=== PATIENT | female | born 1950 | race Caucasian/White ===

== ENCOUNTER 2016-12-04 19:18 | Emergency (ER) | payer BC ==
[~2016-12-04 19:18] MED LIST: ASPI-482 PO; CEPH500C PO; INSU100I17 SQ; INSU100V13 SQ; LISI-334 PO; METF10002 PO; VANC1FRO IV
[2016-12-04 19:38] VITALS: BP 160/82
[2016-12-04] MEDS ORDERED: oxyCODONE/APAP 10/325 1 TAB TABLET PO ONE (20:30)
[2016-12-04 20:56] LABS: BASO % 0 % (0-3); EOS # 0.1 x10^3/uL (0.0-0.7); EOS % 1 % (0-3); HEMATOCRIT 39.3 % (36.0-47.0); HEMOGLOBIN 12.9 g/dL (12.0-15.5); LYMPH # 1.8 x10^3/uL (1.0-4.8); LYMPH % 20 % (24-48); MEAN CORPUSCULAR HEMOGLOBIN 30 pg (25-35); MEAN CORPUSCULAR HGB CONC 33 g/dL (31-37); MEAN CORPUSCULAR VOLUME 92 fL (79-100); MONO # 0.7 x10^3/uL (0.0-1.1); MONO % 8 % (0-9); NEUT # 6.6 x10^3uL (1.8-7.7); NEUT % 71 % (31-73); PLATELET COUNT 275 x10^3/uL (140-400); RED BLOOD COUNT 4.26 x10^6/uL (3.50-5.40); RED CELL DISTRIBUTION WIDTH 13.6 % (11.5-14.5); WHITE BLOOD COUNT 9.3 x10^3/uL (4.0-11.0)
[2016-12-04 21:07] LABS: ALBUMIN 3.7 g/dL (3.4-5.0); CREATININE 1.6 mg/dL (0.6-1.0); GFR 32.5; POTASSIUM 4.7 mmol/L (3.5-5.1); TOTAL BILIRUBIN 0.3 mg/dL (0.2-1.0); TOTAL PROTEIN 7.3 g/dL (6.4-8.2); URIC ACID 4.2 mg/dL (2.6-6.0)
[2016-12-04] MEDS ORDERED: CLINDAMYCIN HCL 150 MG CAPSULE PO ONE (21:30)
--- NOTE | 2016-12-05 04:51 | ED.ADGEN ---
Past History Past Medical History: Cancer, Diabetes, High Cholesterol, Hypertension, Other Past Surgical History: , Tubal ligation, Other Alcohol Use: None Drug Use: None Adult General Chief Complaint Chief Complaint Left foot swelling and pain [facility] Patient is a 66-year-old female who presents with left foot swelling and pain for 3 days with left toenail removal yesterday per Dr. Gutierrez's office. Patient prescribed pain medication, but states swelling and pain are poorly controlled. Patient with Sherman's foot edema with swelling tenderness and warmth over her left ankle. There is no injury patient streaking or weeping. There is no calf pain or swelling noted. No fever or nausea. Patient denies history of trauma. Denies history of gout. Review of Systems Review of Systems ROS as per HPI. Current Medications Current Medications Current Medications Medications (Trade) Dose Ordered Sig/Wendy Start Time Stop Time Status Last Admin Dose Admin Clindamycin HCl (Cleocin) 300 mg 1X ONCE 12/04/16 21:30 12/04/16 21:31 DC 12/04/16 21:30 300 MG Oxycodone/ Acetaminophen (Percocet 10/325) 1 tab 1X ONCE 12/04/16 20:30 12/04/16 20:31 DC 12/04/16 20:30 1 TAB Allergies Allergies Allergies Coded Allergies Type Severity Reaction Last Updated Verified No Known Drug Allergies 09/13/14 No Physical Exam Physical Exam Constitutional: Well developed, well nourished, discomfort secondary pain. Skin: No induration, streaking or weeping. Extremities: Left foot/ankle, mild swelling of left foot with tenderness and warmth and mild erythema over left ankle. Joint does not feel hot patient has only minimal for range of motion. Recently moved left great toe nail fell bleeding of nail bed. Neurologic: Left foot, no motor weakness or loss of sensation. Current Patient Data Vital Signs Vital Signs Date Time Temp Pulse Resp B/P (MAP) Pulse Ox O2 Delivery O2 Flow Rate FiO2 12/04/16 19:38 98.4 85 20 98 Room Air Lab Results Laboratory Tests Test 12/04/16 20:33 White Blood Count 9.3 x10^3/uL (4.0-11.0) Red Blood Count 4.26 x10^6/uL (3.50-5.40) Hemoglobin 12.9 g/dL (12.0-15.5) Hematocrit 39.3 % (36.0-47.0) Mean Corpuscular Volume 92 fL (79-100) Mean Corpuscular Hemoglobin 30 pg (25-35) Mean Corpuscular Hemoglobin Concent 33 g/dL (31-37) Red Cell Distribution Width 13.6 % (11.5-14.5) Platelet Count 275 x10^3/uL (140-400) Neutrophils (%) (Auto) 71 % (31-73) Lymphocytes (%) (Auto) 20 % (24-48) L Monocytes (%) (Auto) 8 % (0-9) Eosinophils (%) (Auto) 1 % (0-3) Basophils (%) (Auto) 0 % (0-3) Neutrophils # (Auto) 6.6 x10^3uL (1.8-7.7) Lymphocytes # (Auto) 1.8 x10^3/uL (1.0-4.8) Monocytes # (Auto) 0.7 x10^3/uL (0.0-1.1) Eosinophils # (Auto) 0.1 x10^3/uL (0.0-0.7) Basophils # (Auto) 0.0 x10^3/uL (0.0-0.2) Sodium Level 141 mmol/L (136-145) Potassium Level 4.7 mmol/L (3.5-5.1) Chloride Level 105 mmol/L (98-107) Carbon Dioxide Level 30 mmol/L (21-32) Anion Gap 6 (6-14) Blood Urea Nitrogen 28 mg/dL (7-20) H Creatinine 1.6 mg/dL (0.6-1.0) H Estimated GFR (Cockcroft-Gault) 32.5 BUN/Creatinine Ratio 18 (6-20) Glucose Level 213 mg/dL (70-99) H Uric Acid 4.2 mg/dL (2.6-6.0) Calcium Level 9.0 mg/dL (8.5-10.1) Total Bilirubin 0.3 mg/dL (0.2-1.0) Aspartate Amino Transferase (AST) 20 U/L (15-37) Alanine Aminotransferase (ALT) 33 U/L (14-59) Alkaline Phosphatase 44 U/L (46-116) L C-Reactive Protein 8.0 mg/L (0-3.3) H Total Protein 7.3 g/dL (6.4-8.2) Albumin 3.7 g/dL (3.4-5.0) Albumin/Globulin Ratio 1.0 (1.0-1.7) EKG EKG [] Radiology/Procedures Radiology/Procedures [Left foot: No obvious displaced fracture per preliminary ED read.] Course & Med Decision Making Course & Med Decision Making Pertinent Labs and Imaging studies reviewed. (See chart for details) [Left foot pain, tenderness and swelling with concern for possible cellulitis. Clindamycin given. Patient instructed to be nonweightbearing, keep leg elevated at rest and follow-up with Dr. Gutierrez in office.] Final Impression Final Impression [1. Left foot cellulitis] Problems: Dragon Disclaimer Dragon Disclaimer This electronic medical record was generated, in whole or in part, using a voice recognition dictation system. JULIO HUFF DO Dec 05, 2016 04:51
--- NOTE | 2016-12-05 09:53 | RAD ---
Left foot, 3 views, 12/04/2016: History: Great toe pain and swelling No fracture or destructive bony lesion is seen. There are mild degenerative changes at the first MTP joint and scattered interphalangeal joints. A moderate size inferior calcaneal spur is present. There is mild subcutaneous edema about the foot. IMPRESSION: No acute bony abnormality is detected.
== END 2016-12-04 22:00 | disposition home or self-care (01) ==
LOC: ER 19:18
DX: L03.116 Cellulitis of left lower limb (principal); I10 Essential (primary) hypertension; E78.00 Pure hypercholesterolemia, unspecified; E11.9 Type 2 diabetes mellitus without complications
CPT/HCPCS: 36415; 73630; 80053; 84550; 85027; 86140; 99284; 99285

== ENCOUNTER 2016-12-05 18:44 | Inpatient (IN) | payer BC ==
[~2016-12-05] VITALS: Ht 170.2 cm; Wt 83.5 kg
[2016-12-05 19:30] VITALS: BP 160/94
--- NOTE | 2016-12-05 19:30 | NUR ---
Pt direct admitted from Dr Gutierrez's office for Left leg Cellulitis and pain. Pt to [address] [place] [address] via wheelchair, taken to room 124 accompanied nursing staff & boyfriend Davian. Pt moved from wheelchair to bed x1 assist, unsteady, slow gait noted. Admission assessment completed. Health history & home medications reviewed with pt. VSS. IV started in Left wrist #22, pt tolerated well. surgical scrub technologist at bedside for admit labs and BC x2 drawn as well. IV Vanco started after BC drawn. Pt assist to bathroom x1 assist and walker. Pt able to put wt on left leg but with increased pain, pt given PRN pain medication. Pt had left great toe "nail removed on Friday or Friday" (12/03 or 12/04) at MD's office and has now developed increased pain and swelling up left leg. Pictures taken per [facility] protocol and placed in paper chart. Toe nail bed crusty and red with scant oozing. Wound care consulted in computer. Lovenox for VTE. Pt refused pneumonia vaccine. Pt lives at home with boyfriend Davian. POC reviewed with pt, understanding verbalized. Box lunch given per request. Call light within reach.
[2016-12-05] MEDS ORDERED: VANCOMYCIN 2 GM in IV NORMAL SALINE 500ML 500 ML IV ONE (20:30)
[2016-12-05] MEDS ORDERED: IV NORMAL SALINE 250ML 250 ML ONE (20:43)
[2016-12-05] MEDS: ENOXAPARIN 40 MG/0.4 ML DISP.SYRIN. SQ SCH (21:00)
[2016-12-05] MEDS: HYDROcodone/APAP 7.5/325MG 1 TAB TABLET PO PRN (21:01)
[2016-12-05 21:44] LABS: BASO % 0 % (0-3); EOS # 0.1 x10^3/uL (0.0-0.7); EOS % 1 % (0-3); HEMATOCRIT 39.1 % (36.0-47.0); HEMOGLOBIN 12.8 g/dL (12.0-15.5); LYMPH # 1.6 x10^3/uL (1.0-4.8); LYMPH % 17 % (24-48); MEAN CORPUSCULAR HEMOGLOBIN 30 pg (25-35); MEAN CORPUSCULAR HGB CONC 33 g/dL (31-37); MEAN CORPUSCULAR VOLUME 92 fL (79-100); MONO # 0.7 x10^3/uL (0.0-1.1); MONO % 8 % (0-9); NEUT # 6.7 x10^3uL (1.8-7.7); NEUT % 73 % (31-73); PLATELET COUNT 269 x10^3/uL (140-400); RED BLOOD COUNT 4.25 x10^6/uL (3.50-5.40); RED CELL DISTRIBUTION WIDTH 13.5 % (11.5-14.5); WHITE BLOOD COUNT 9.1 x10^3/uL (4.0-11.0)
[2016-12-05] MEDS: INSULIN DETEMIR 300 UNITS/3 ML INSULN.PEN. SQ SCH (21:44)
[2016-12-05 21:45] LABS: CALCIUM 9.2 mg/dL (8.5-10.1); CREATININE 1.3 mg/dL (0.6-1.0); GFR 41.2; POTASSIUM 4.7 mmol/L (3.5-5.1)
[2016-12-05] MEDS: VANCOMYCIN PER PHARMACY MC PRN (21:51)
--- NOTE | 2016-12-05 21:51 | NUR ---
Pharmacy Vancomycin Dosing Note S:Consulted to monitor and dose vancomycin started 12/05/16. O:MARIA G GUZMAN is a 66 year old F with Cellulitis . Height: 5 feet, 7 inches Weight: 83.326032 kg [place] Body Weight: Adjusted Body Weight: Dosing Weight: Actual Other Antibiotics: LABS: Last BUN: 24 Last Creatinine: 1.3 Creatinine Clearance: 39.5 Last WBC: 9.1 Last Platelets: 269 Tmax (past 24 hours): Microbiology: I/O: Drug Levels: Last level: on at Last dose given 12/05/16 at 2142 Vancomycin Dosing: Loading Dose: 2000 mg x1 Dosing Weight: Actual Target Trough: 10-20 A: Based on: P: 1. Begin Vancomycin 1250 mg IV q24h 2. Follow up Trough level on 12/07/16 at 2130 3. Pharmacy will continue to monitor, follow and adjust therapy as needed. CARLY SAMANIEGO [facility], 12/05/16 [id number]
[2016-12-05 22:45] VITALS: BP 131/81
[2016-12-05 22:54] LABS: SEDIMENTATION RATE 25 (0-25)
[2016-12-06] MEDS ORDERED: INSU100I30 SUBCUT (02:25)
[2016-12-06] MEDS ORDERED: HYDR-2758 PO (02:25)
[2016-12-06] MEDS ORDERED: CHOL500050 PO (02:25)
[2016-12-06] MEDS ORDERED: FENO145T2 PO (02:25)
[2016-12-06 05:55] VITALS: BP 133/75
[2016-12-06] MEDS: INSULIN ASPART 300 UNITS/3 ML INSULN.PEN SQ SCH ×4 (07:30→16:30)
[2016-12-06] MEDS: ASPIRIN ENTERIC COATED 81 MG TABLET.DR. PO SCH (08:45)
[2016-12-06] MEDS: LISINOPRIL 20 MG TABLET PO SCH (08:46)
[2016-12-06] MEDS: metFORMIN 500 MG TABLET PO SCH ×2 (08:47→17:11)
[2016-12-06] MEDS: INSULIN DETEMIR 300 UNITS/3 ML INSULN.PEN. SQ SCH ×2 (08:48→20:52)
[2016-12-06] MEDS ORDERED: VANCOMYCIN HCL IV SCH (09:00)
[2016-12-06] MEDS ORDERED: DEXTROSE IV SCH (09:00)
[2016-12-06] MEDS: HYDROcodone/APAP 7.5/325MG 1 TAB TABLET PO PRN ×2 (11:28→19:32)
[2016-12-06 11:30] VITALS: BP 132/59
[2016-12-06] MEDS ORDERED: DEXTROSE 50% 25 GM / 50ML DISP.SYRIN. IV PRN (11:45)
--- NOTE | 2016-12-06 12:33 | RAD ---
EXAM: Left lower extremity venous Doppler. HISTORY: Left lower extremity pain/swelling. COMPARISON: None. FINDINGS: Grayscale and Doppler analysis of the left lower extremity deep venous system was performed with graded compression and augmentation. The common femoral, greater saphenous, superficial femoral, popliteal and calf veins were assessed. There is no evidence of deep venous thrombosis. IMPRESSION: 1. No evidence of deep venous thrombosis.
[2016-12-06] MEDS ORDERED: INSULIN DETEMIR 300 UNITS/3 ML INSULN.PEN. SQ SCH (14:42)
[2016-12-06 15:42] VITALS: BP 120/72
--- NOTE | 2016-12-06 16:50 | RAD ---
Three-phase bone scan, 12/06/2016: History: Left foot swelling, possible osteomyelitis Imaging of both feet was performed following IV injection of 26.6 mCi of technetium 99m MDP. The dynamic flow study demonstrates generalized hyperemia involving the left foot and ankle. The blood pool phase also demonstrates generalized increased activity about the ankle and midfoot as well as mild focally increased activity in the region of the first or second toe. The delayed images demonstrate mildly increased activity at the left great toe level, similar to that seen on the blood pool phase. There is also increased activity at the left midfoot and ankle regions, similar to that seen on the blood pool images. IMPRESSION: 1. Generalized hyperemia about the left foot and ankle. 2. Focally increased activity on the delayed images at the left great toe, midfoot and ankle levels. The findings suggest cellulitis, although early underlying osteomyelitis cannot be excluded. MR scanning may be useful for further evaluation, if clinically indicated.
[2016-12-06 20:03] VITALS: BP 135/79
[2016-12-06] MEDS: ZOLPIDEM 5 MG TABLET. PO PRN (20:45)
[2016-12-06] MEDS: ENOXAPARIN 40 MG/0.4 ML DISP.SYRIN. SQ SCH (20:46)
[2016-12-06] MEDS: VANCOMYCIN 1.25 GM in IV NORMAL SALINE 250ML 250 ML IV SCH (22:00)
[2016-12-06 23:22] VITALS: BP 104/61
[2016-12-07] MEDS: HYDROcodone/APAP 7.5/325MG 1 TAB TABLET PO PRN ×2 (04:59→19:59)
[2016-12-07 07:30] VITALS: BP 104/61
[2016-12-07] MEDS: LISINOPRIL 20 MG TABLET PO SCH (08:37)
[2016-12-07] MEDS: metFORMIN 500 MG TABLET PO SCH ×2 (08:38→17:21)
[2016-12-07] MEDS: ASPIRIN ENTERIC COATED 81 MG TABLET.DR. PO SCH (08:38)
[2016-12-07] MEDS: INSULIN ASPART 300 UNITS/3 ML INSULN.PEN SQ SCH ×3 (08:44→16:58)
[2016-12-07] MEDS: INSULIN DETEMIR 300 UNITS/3 ML INSULN.PEN. SQ SCH (08:44)
[2016-12-07] MEDS ORDERED: INSULIN DETEMIR 300 UNITS/3 ML INSULN.PEN. SQ SCH (09:00)
[2016-12-07 11:10] VITALS: BP 118/74
--- NOTE | 2016-12-07 12:33 | NUR ---
RENAL DOSING: patient's creatinine clearance- 42.5mL/min dosing of levofloxacin changed from 750mg q24hrs to q48hrs, pharmacy will continue to watch renal function and adjust dose accordingly.
--- NOTE | 2016-12-07 12:33 | PDOC ---
SUBJECTIVE: Feels somewhat better but not terribly improved OBJECTIVE: Problems: Cellulitis to the left ankle area Alert and oriented white female diminished but clear severe exam regular sinus rhythm and left ankle area seems to be more inflamed and irritated some streaking up the tibia Vital Signs: Vital Signs Date Time Temp Pulse Resp B/P (MAP) Pulse Ox O2 Delivery O2 Flow Rate FiO2 12/07/16 11:10 97.4 62 20 118/74 (89) 97 Room Air I & O Intake and Output 12/07/16 07:00 Intake Total 1680 ml Balance 1680 ml Intake Oral 1680 ml IV Total 0 ml # Voids 7 # Bowel Movements 1 Labs: Laboratory Tests Test 12/05/16 21:12 12/05/16 21:20 12/05/16 21:39 12/06/16 07:35 Lactic Acid Level 0.6 mmol/L (0.4-2.0) White Blood Count 9.1 x10^3/uL (4.0-11.0) Red Blood Count 4.25 x10^6/uL (3.50-5.40) Hemoglobin 12.8 g/dL (12.0-15.5) Hematocrit 39.1 % (36.0-47.0) Mean Corpuscular Volume 92 fL (79-100) Mean Corpuscular Hemoglobin 30 pg (25-35) Mean Corpuscular Hemoglobin Concent 33 g/dL (31-37) Red Cell Distribution Width 13.5 % (11.5-14.5) Platelet Count 269 x10^3/uL (140-400) Neutrophils (%) (Auto) 73 % (31-73) Lymphocytes (%) (Auto) 17 % (24-48) Monocytes (%) (Auto) 8 % (0-9) Eosinophils (%) (Auto) 1 % (0-3) Basophils (%) (Auto) 0 % (0-3) Neutrophils # (Auto) 6.7 x10^3uL (1.8-7.7) Lymphocytes # (Auto) 1.6 x10^3/uL (1.0-4.8) Monocytes # (Auto) 0.7 x10^3/uL (0.0-1.1) Eosinophils # (Auto) 0.1 x10^3/uL (0.0-0.7) Basophils # (Auto) 0.0 x10^3/uL (0.0-0.2) Erythrocyte Sedimentation Rate 25 (0-25) D-Dimer (Aliyah) 0.30 mg/L (0.00-0.50) Sodium Level 140 mmol/L (136-145) Potassium Level 4.7 mmol/L (3.5-5.1) Chloride Level 103 mmol/L (98-107) Carbon Dioxide Level 31 mmol/L (21-32) Anion Gap 6 (6-14) Blood Urea Nitrogen 24 mg/dL (7-20) Creatinine 1.3 mg/dL (0.6-1.0) Estimated GFR (Cockcroft-Gault) 41.2 Glucose Level 221 mg/dL (70-99) Calcium Level 9.2 mg/dL (8.5-10.1) Glucose (Fingerstick) 224 mg/dL (70-99) 153 mg/dL (70-99) Test 12/06/16 11:29 12/06/16 16:49 12/06/16 20:47 12/07/16 07:24 Glucose (Fingerstick) 254 mg/dL (70-99) 146 mg/dL (70-99) 256 mg/dL (70-99) 239 mg/dL (70-99) Test 12/07/16 11:23 Glucose (Fingerstick) 157 mg/dL (70-99) Physical Exam: Alert and oriented white female Lungs diminished but clear CVR exam vital signs The abdomen soft nontender ASSESSMENT: Fashion cellulitis left ankle possible osteomyelitis PLAN: Continue on IV antibiotic therapy Add Levaquin to the Vanco At PICC line Get MRI scan of that left ankle area to rule out osteal Bone scan was equivocal KD TORRES MD Dec 07, 2016 12:33
[2016-12-07 15:05] VITALS: BP 129/77
[2016-12-07] MEDS: INDOMETHACIN 25 MG CAPSULE PO SCH (17:21)
[2016-12-07] MEDS: ENOXAPARIN 40 MG/0.4 ML DISP.SYRIN. SQ SCH (20:00)
[2016-12-07] MEDS: ZOLPIDEM 5 MG TABLET. PO PRN (20:17)
[2016-12-07 20:28] VITALS: BP 148/76
[2016-12-07] MEDS: VANCOMYCIN 1.25 GM in IV NORMAL SALINE 250ML 250 ML IV SCH (22:00)
[2016-12-07 22:07] LABS: C REACTIVE PROTEIN 9.7 mg/L (0-3.3); URIC ACID 4.4 mg/dL (2.6-6.0)
[2016-12-07 22:10] LABS: VANC TR 11.5 mcg/mL (10.0-20.0)
[2016-12-07 23:13] VITALS: BP 133/79
[2016-12-08 05:19] LABS: BASO # 0.1 x10^3/uL (0.0-0.2); BASO % 1 % (0-3); EOS # 0.1 x10^3/uL (0.0-0.7); EOS % 2 % (0-3); HEMATOCRIT 34.3 % (36.0-47.0); HEMOGLOBIN 11.5 g/dL (12.0-15.5); LYMPH # 1.7 x10^3/uL (1.0-4.8); LYMPH % 28 % (24-48); MEAN CORPUSCULAR HEMOGLOBIN 31 pg (25-35); MEAN CORPUSCULAR HGB CONC 33 g/dL (31-37); MEAN CORPUSCULAR VOLUME 92 fL (79-100); MONO # 0.4 x10^3/uL (0.0-1.1); MONO % 6 % (0-9); NEUT # 3.8 x10^3uL (1.8-7.7); NEUT % 63 % (31-73); PLATELET COUNT 239 x10^3/uL (140-400); RED BLOOD COUNT 3.74 x10^6/uL (3.50-5.40); RED CELL DISTRIBUTION WIDTH 13.3 % (11.5-14.5); WHITE BLOOD COUNT 6.1 x10^3/uL (4.0-11.0)
[2016-12-08 05:23] LABS: CALCIUM 8.7 mg/dL (8.5-10.1); CREATININE 1.5 mg/dL (0.6-1.0); POTASSIUM 4.4 mmol/L (3.5-5.1)
[2016-12-08 08:00] VITALS: BP 121/70
[2016-12-08] MEDS: metFORMIN 500 MG TABLET PO SCH (08:36)
[2016-12-08] MEDS: INDOMETHACIN 25 MG CAPSULE PO SCH ×2 (08:37→17:06)
[2016-12-08] MEDS: LISINOPRIL 20 MG TABLET PO SCH (08:39)
[2016-12-08] MEDS: INSULIN DETEMIR 300 UNITS/3 ML INSULN.PEN. SQ SCH (08:52)
[2016-12-08] MEDS: INSULIN ASPART 300 UNITS/3 ML INSULN.PEN SQ SCH ×3 (08:53→17:10)
[2016-12-08] MEDS ORDERED: methylPREDNISolone SOD SUCC PF 40 MG/ML VIAL. IV SCH (09:00)
[2016-12-08 11:19] VITALS: BP 133/73
--- NOTE | 2016-12-08 11:52 | NUR ---
RENAL DOSING: patient's serum creatinine is 1.5 today, will hold metformin until serum creatinine <1.4, pharmacy will continue to monitor.
--- NOTE | 2016-12-08 13:00 | PDOC ---
OBJECTIVE: Problems: Patient still has infection in her left ankle and possibly left toe Vital Signs: Vital Signs Date Time Temp Pulse Resp B/P (MAP) Pulse Ox O2 Delivery O2 Flow Rate FiO2 12/08/16 11:19 98.1 65 20 133/73 (93) 97 Room Air I & O Intake and Output 12/08/16 07:00 Intake Total 1940 ml Balance 1940 ml Intake Oral 1790 ml IV Total 150 ml # Voids 8 Labs: Laboratory Tests Test 12/06/16 16:49 12/06/16 20:47 12/07/16 07:24 12/07/16 11:23 Glucose (Fingerstick) 146 mg/dL (70-99) 256 mg/dL (70-99) 239 mg/dL (70-99) 157 mg/dL (70-99) Test 12/07/16 16:22 12/07/16 20:38 12/07/16 21:25 12/08/16 05:10 Glucose (Fingerstick) 178 mg/dL (70-99) 198 mg/dL (70-99) Uric Acid 4.4 mg/dL (2.6-6.0) C-Reactive Protein 9.7 mg/L (0-3.3) Vancomycin Level Trough 11.5 mcg/mL (10.0-20.0) Vancomycin Last Dose Date 12/06/16 Vancomycin Last Dose Time 2200 Rheumatoid Factor <10.0 IU/mL (0.0-13.9) White Blood Count 6.1 x10^3/uL (4.0-11.0) Red Blood Count 3.74 x10^6/uL (3.50-5.40) Hemoglobin 11.5 g/dL (12.0-15.5) Hematocrit 34.3 % (36.0-47.0) Mean Corpuscular Volume 92 fL (79-100) Mean Corpuscular Hemoglobin 31 pg (25-35) Mean Corpuscular Hemoglobin Concent 33 g/dL (31-37) Red Cell Distribution Width 13.3 % (11.5-14.5) Platelet Count 239 x10^3/uL (140-400) Neutrophils (%) (Auto) 63 % (31-73) Lymphocytes (%) (Auto) 28 % (24-48) Monocytes (%) (Auto) 6 % (0-9) Eosinophils (%) (Auto) 2 % (0-3) Basophils (%) (Auto) 1 % (0-3) Neutrophils # (Auto) 3.8 x10^3uL (1.8-7.7) Lymphocytes # (Auto) 1.7 x10^3/uL (1.0-4.8) Monocytes # (Auto) 0.4 x10^3/uL (0.0-1.1) Eosinophils # (Auto) 0.1 x10^3/uL (0.0-0.7) Basophils # (Auto) 0.1 x10^3/uL (0.0-0.2) Sodium Level 140 mmol/L (136-145) Potassium Level 4.4 mmol/L (3.5-5.1) Chloride Level 106 mmol/L (98-107) Carbon Dioxide Level 25 mmol/L (21-32) Anion Gap 9 (6-14) Blood Urea Nitrogen 25 mg/dL (7-20) Creatinine 1.5 mg/dL (0.6-1.0) Estimated GFR (Cockcroft-Gault) 35.0 Glucose Level 148 mg/dL (70-99) Calcium Level 8.7 mg/dL (8.5-10.1) Test 12/08/16 07:53 12/08/16 12:02 Glucose (Fingerstick) 172 mg/dL (70-99) 221 mg/dL (70-99) Physical Exam: Alert and oriented white female No apparent distress Lungs clear severe exam stable Left ankle less swollen some erythema of the skin appears to be more dry and scaly the left great toe procedures to be healing well There is no communication between the left toe removal of the nail and the left ankle area inflammation and irritation to that area ASSESSMENT: Impression cellulitis to the left ankle and removal for grade left toenail as outpatient 9 type 2 diabetes Patient will get PLAN: IV vancomycin we'll try to get a PICC line and need an MRI of that left ankle rule out any signs of osteomyelitis The x-rays or bone scan only shows possible cellulitis but MRIs are needed further to determine the depth of the cellulitis and the possibility of osteomyelitis KD TORRES MD Dec 08, 2016 13:00
[2016-12-08] MEDS: VANCOMYCIN PER PHARMACY MC PRN (13:03)
--- NOTE | 2016-12-08 13:04 | NUR ---
Pharmacy Vancomycin Dosing Note S:Consulted to monitor and dose vancomycin started 12/05/16. O:MARIA G GUZMAN is a 66 year old F with Cellulitis . Height: 5 feet, 7 inches Weight: 83.745425 kg [place] Body Weight: Adjusted Body Weight: Dosing Weight: Actual Other Antibiotics: LEVOFLOXACIN 750MG Q48HRS LABS: Last BUN: 25 Last Creatinine: 1.5 Creatinine Clearance: 1.5 Last WBC: 6.1 Last Platelets: 239 Tmax (past 24 hours): Microbiology: I/O: Drug Levels: Last Trough level: 11.5 on 12/07/16 at 2130 Last dose given 12/07/16 at 2200 Vancomycin Dosing: Loading Dose: 2000 mg x1 Dosing Weight: Actual Target Trough: 10-20 A: Based on: P: 1. Continue Vancomycin 1250 mg IV q24h 2. Follow up Trough level 3. Pharmacy will continue to monitor, follow and adjust therapy as needed. CARLY SAMANIEGO [facility], 12/08/16 [id number]
[2016-12-08] MEDS ORDERED: NEOMY/BACITR/POLYMYXIN OINT PACKET. TP ONE (13:10)
[2016-12-08 14:57] VITALS: BP 117/70
--- NOTE | 2016-12-08 15:01 | NUR ---
Patient is waiting in chair for PICC nurse to arrive. Plan is for the patient to go home once she receives her IV Vanco post PICC line placement. Outpatient infusions to start tomorrow. No complaints of pain and VSS, will continue to monitor.
[2016-12-08] MEDS: HYDROcodone/APAP 7.5/325MG 1 TAB TABLET PO PRN (15:31)
[2016-12-08] MEDS: VANCOMYCIN 1.25 GM in IV NORMAL SALINE 250ML 250 ML IV SCH (16:55)
--- NOTE | 2016-12-08 19:17 | NUR ---
Discharge Note: MARIA G GUZMAN [address] Discharge instructions and discharge home medications reviewed with Patient and a copy given. All questions have been answered and understanding verbalized. The following instructions and handouts were given: Cellulitis Discontinued lines and drains: Peripheral IV intact. Patient discharged to Home or Self Care withSignificant Othervia Wheelchair
--- NOTE | 2016-12-18 14:43 | HP ---
ADMIT DATE: 12/05/2016 HISTORY OF PRESENT ILLNESS: Possible cellulitis to her left ankle. The patient recently had an infected toenail removed; however, she developed swelling to her left ankle, there is no streaking between the toe and the ankle itself, but the ankle does appear to be swollen and tender and pain has increased as well as she had been on oral antibiotics, but with no relief. The patient's ankle became increasingly swollen, said she had some night sweats during the night. The patient was admitted for IV antibiotic therapy for cellulitis to the left ankle. PAST MEDICAL HISTORY: She has had history of cancer, type 2 diabetes, and hypertension. ALLERGIES: VICTOZA and INVOKANA. MEDICATIONS: Include insulin, fenofibrate, Tresiba, and lisinopril 20 mg daily. PAST SURGICAL HISTORY: Neck surgery, back surgery, foot surgery, tonsillectomy at age 27 and x 2. FAMILY HISTORY: Both patient's parents were . SOCIAL HISTORY: Denies smoking, alcohol or drug use. PHYSICAL EXAMINATION: GENERAL: Pleasant white female, in moderate amount of pain. VITAL SIGNS: Blood pressure 118/66, respiratory rate 18, pulse 90, temperature 99.2, heart rate 80, weight 186 pounds, and BMI is 29. HEENT: The patient's head was atraumatic, normocephalic. Eyes: PERRLA without jaundice. Mouth and throat were normal. NECK: Supple without JVD or thyromegaly. LUNGS: Diminished throughout, but clear. CARDIOVASCULAR: Regular sinus rhythm, S1, S2, without murmur, rub, thrill, or extra heart sounds. ABDOMEN: Soft, nontender, no rebound or guarding, positive bowel sounds, no hepatosplenomegaly. EXTREMITIES: Left ankle swollen, tender, redness noted. No streaking between the previous toe nail excision and the ankle itself. The ankle itself is swollen completely around tender to touch. No history of injury, no puncture wounds. Pulses noted distally, otherwise unremarkable. NEUROLOGIC: The patient was alert and oriented x 3. Speech fluent, spontaneous, appropriate. Cranial nerves 2-12 were grossly intact. The patient's C-reactive protein is elevated at 8. IMPRESSION AND PLAN: The patient will be admitted for cellulitis of left ankle, unresponsive to oral antibiotics. She will be placed in with PICC line and IV vancomycin. KD TORRES MD DR: LISBETH/kian JOB#: [id number] / [id number]
--- NOTE | 2016-12-18 21:25 | DS ---
DATE OF DISCHARGE: 12/08/2016 HOSPITAL COURSE: The patient brought in with swelling to her left foot and ankle area. It was hot and tender to touch. The patient said she was running temperatures at home and had failed as an outpatient oral antibiotics. As a result of this, she was brought in, placed on IV antibiotics and made fairly good progress overall. Blood sugars were also somewhat elevated. She is a diabetic. Her C-reactive protein was elevated to almost 10. Creatinine was also elevated at 1.5. The patient made good progress during the rest of her hospitalization and discharged home. Continue outpatient IV antibiotic therapy, regular diet, decreased activity, stay off that foot, type 2 diabetes, poorly controlled, and CKD 3. The patient will be monitored as an outpatient and make further evaluation on her, as she returns for followup with her antibiotic therapy. KD TORRES MD DR: LISBETH/kian JOB#: [id number] / [id number]
== END 2016-12-08 19:15 | disposition home or self-care (01) | DRG 603 ==
LOC: 1 SOUTH 19:08
PROVIDERS: ADMIT Family Medicine; ATTEND Family Medicine
DX: L03.116 Cellulitis of left lower limb (principal); M86.8X7 Other osteomyelitis, ankle and foot; E11.69 Type 2 diabetes mellitus with other specified complication
CPT/HCPCS: 36415; 36569; 78315; 80048; 80202; 82947; 83605; 84550; 85027; 85379; 85651; 86140; 86431; 87040; 93971; 96374; A9503; J1650; J1815; J1956; J2920; J3370; J7040; J7050

== ENCOUNTER → 2017-10-14 | Outpatient (CLI) | payer MEDICARE, BC ==
[2016-12-24 10:05] VITALS: BP 154/70
[~2017-10-14] MED LIST changes: +CHOL500050 PO; +FENO145T30 PO; +HYDR-2758 PO; +INSU100I30 SUBCUT; +IOHEXOL 240 MG/ML 50ML VIAL. ONE; +IOHEXOL 240 MG/ML 50ML VIAL. PO ONE; +IOHEXOL 300 MG/ML 75 ML VIAL. IV ONE; -METF10002 PO; +METF10003 PO; +SODIUM BICARBONATE IVF 150 MEQ in IV STERILE WATER 1,000 ML IV ONE
--- NOTE | 2017-10-14 14:34 | RAD ---
Examination: CT of the abdomen pelvis with oral and IV contrast HISTORY: History of left lower quadrant, pelvic pain for one month COMPARISON: None available TECHNIQUE: Axial CT images of the abdomen pelvis were performed with IV contrast. Coronal and sagittal reformats are performed Exposure: One or more of the following individualized dose reduction techniques were utilized for this examination: 1. Automated exposure control 2. Adjustment of the mA and/or kV according to patient size 3. Use of iterative reconstruction technique FINDINGS: The bibasilar lungs are clear. No evidence of free air identified in the abdomen. The visualized liver, spleen, adrenals grossly appears unremarkable. The gallbladder is mildly distended. The stomach is mildly distended. The visualized pancreas grossly appears unremarkable. The small bowel is nondilated. Feces and gas noted in the colon. The appendix is distended measuring up to 1 cm however no evidence of inflammatory fat stranding identified about the appendix. The urinary bladder is moderately distended. The visualized uterus, adnexa grossly appears unremarkable. The bilateral kidneys enhance symmetrically. The caliber of the aorta grossly appears unremarkable. Moderate degenerative changes thoracic lumbar spine. Small fat-containing supraumbilical and umbilical hernia identified. IMPRESSION: 1. Somewhat distended appendix measuring up to 1 cm in transverse dimension however no evidence of inflammatory fat stranding identified about the appendix. 2. No obvious acute intra-abdominal findings. 3. Moderately distended urinary bladder. Electronically signed by: Ulises Lowery MD (10/14/2017 2:30 PM) [id number]
== END | disposition home or self-care (01) ==
LOC: CT 07:49
PROVIDERS: ATTEND Specialist
DX: N32.89 Other specified disorders of bladder (principal); I10 Essential (primary) hypertension; E11.9 Type 2 diabetes mellitus without complications; Z79.01 Long term (current) use of anticoagulants
CPT/HCPCS: 74177; Q9966; Q9967

== ENCOUNTER 2017-10-22 17:03 | Emergency (ER) | payer MEDICARE, BC ==
[~2017-10-22] VITALS: Ht 167.6 cm; Wt 83.9 kg
[2017-10-22 17:03] VITALS: BP 165/71
[~2017-10-22 17:03] MED LIST changes: -IOHEXOL 240 MG/ML 50ML VIAL. ONE; -IOHEXOL 240 MG/ML 50ML VIAL. PO ONE; -IOHEXOL 300 MG/ML 75 ML VIAL. IV ONE; -SODIUM BICARBONATE IVF 150 MEQ in IV STERILE WATER 1,000 ML IV ONE
[2017-10-22] MEDS ORDERED: ONDANSETRON PF 4 MG/2 ML VIAL. IV ONE (17:45)
[2017-10-22] MEDS ORDERED: IOHEXOL 300 MG/ML 75 ML VIAL. IV ONE (17:45)
--- NOTE | 2017-10-22 17:56 | EKG ---
[address] [address] Test Date: 2017-10-22 Test Time: 17:51:32 Pat Name: MARIA G GUZMAN Department: Room: Gender: F Fly Tier: JENN : 1950 Requested By: JULIO HUFF Order Number: [id number] Reading MD: Measurements Intervals Dennard Rate: 98 P: 43 VT: 160 QRS: 7 QRSD: 74 T: 42 QT: 322 QTc: 413 Interpretive Statements SINUS RHYTHM NORMAL ECG RI6.01 No previous ECG available for comparison
--- NOTE | 2017-10-22 18:03 | ED.ADGEN ---
Past History Past Medical History: Cancer, Diabetes, High Cholesterol, Hypertension, Other Past Surgical History: , Tubal ligation, Other Alcohol Use: None Drug Use: None Adult General Chief Complaint Chief Complaint Abdominal pain HPI HPI Patient is a 67 year old female presents with intermittent abdominal pain 2 weeks. Patient initially localized left lower quadrant. Described as dull and cranking and intermittent. Patient was evaluated for this condition by her primary care physician one week ago. She reportedly obtained an outpatient CT showed a distended appendix. Patient was started on naproxen was told to go to the emergency department should her pain return or worsen. Patient's abdominal pain gradually improved until this afternoon while at work patient experience sudden severe right lower quadrant pain. Patient reports nausea, sweats. No fevers or chills. No urinary frequency urgency. No other acute symptoms or complaints. Additional history obtained from the patient's spouse who is present at bedside.[] Review of Systems Review of Systems Review symptoms as per history of present illness. All other review symptoms are negative. [] All other systems were reviewed and found to be within normal limits, except as documented in this note. Current Medications Current Medications Current Medications Medications (Trade) Dose Ordered Sig/Wendy Start Time Stop Time Status Last Admin Dose Admin Fentanyl Citrate (Fentanyl 2ml Vial) 50 mcg 1X ONCE 10/22/17 17:45 10/22/17 17:46 DC Iohexol (Omnipaque 300 Mg/ml) 75 ml 1X ONCE 10/22/17 17:45 10/22/17 17:46 DC Ondansetron HCl (Zofran) 4 mg 1X ONCE 10/22/17 17:45 10/22/17 17:46 DC Allergies Allergies Allergies Coded Allergies Type Severity Reaction Last Updated Verified liraglutide Allergy Mild Nausea and Vomiting 10/22/17 Yes canagliflozin Allergy Unknown 12/06/16 Yes Physical Exam Physical Exam Constitutional: Well developed, ill appearing, moderate distress secondary pain. [] HENT: Normocephalic, atraumatic, bilateral external ears normal, oropharynx moist,, nose normal. [] Eyes: PERRLA, EOMI, conjunctiva normal, no discharge. [] Neck: Normal range of motion, no tenderness, supple, no stridor. [] Cardiovascular:Heart rate regular rhythm, no murmur [] Lungs & Thorax: Bilateral breath sounds clear to auscultation [] Abdomen: Bowel sounds normal, soft, diffuse right lower quadrant pain with voluntary guarding.. [] Skin: Warm, dry, no erythema, no rash. [] Back: No tenderness. [] Extremities: No tenderness, no edema. [] Neurologic: Alert and oriented X 3, normal motor function, normal sensory function, no focal deficits noted. [] Psychologic: Affect normal, judgement normal, mood normal. [] EKG EKG [] Radiology/Procedures Radiology/Procedures [] Course & Med Decision Making Course & Med Decision Making Pertinent Labs and Imaging studies reviewed. (See chart for details) [CT lab and imaging ordered and pending. IV fluids pain and nausea medication given. Workup, management and disposition pending. Care endorsed to oncoming ERP at 1800.] Final Impression Final Impression [] Dragon Disclaimer Dragon Disclaimer This electronic medical record was generated, in whole or in part, using a voice recognition dictation system. JULIO HUFF DO Oct 22, 2017 18:03
[2017-10-22 18:08] LABS: BASO # 0.1 x10^3/uL (0.0-0.2); BASO % 0 % (0-3); EOS % 0 % (0-3); HEMATOCRIT 41.7 % (36.0-47.0); HEMOGLOBIN 13.8 g/dL (12.0-15.5); LYMPH # 0.9 x10^3/uL (1.0-4.8); LYMPH % 5 % (24-48); MEAN CORPUSCULAR HEMOGLOBIN 30 pg (25-35); MEAN CORPUSCULAR HGB CONC 33 g/dL (31-37); MEAN CORPUSCULAR VOLUME 92 fL (79-100); MONO # 1.1 x10^3/uL (0.0-1.1); MONO % 6 % (0-9); NEUT % 89 % (31-73); PLATELET COUNT 196 x10^3/uL (140-400); RED BLOOD COUNT 4.56 x10^6/uL (3.50-5.40); RED CELL DISTRIBUTION WIDTH 13.4 % (11.5-14.5)
[2017-10-22] MEDS ORDERED: CEPH-264 PO (18:08)
[2017-10-22 18:23] LABS: ALBUMIN 3.8 g/dL (3.4-5.0); ALBUMIN/GLOBULIN RATIO 1.3 (1.0-1.7); CALCIUM 9.1 mg/dL (8.5-10.1); CREATININE 1.2 mg/dL (0.6-1.0); GFR 45.1; POTASSIUM 4.8 mmol/L (3.5-5.1); TOTAL BILIRUBIN 0.7 mg/dL (0.2-1.0); TOTAL PROTEIN 6.8 g/dL (6.4-8.2)
--- NOTE | 2017-10-22 19:15 | RAD ---
Indication: Right lower quadrant abdominal pain. Nausea. Technique: Axial images and coronal and sagittal reformatted images are provided. 60 mL of intravenous Omnipaque 300 was administered without complication. Comparison is from October 14, 2017. One or more of the following individualized dose reduction techniques were utilized for this examination: 1. Automated exposure control 2. Adjustment of the mA and/or kV according to patient size 3. Use of iterative reconstruction technique Findings: There is minimal atelectasis in the lung bases. There is no pleural effusion. Heart is not enlarged. Coronary artery calcification is noted. There is mild fatty infiltration of the liver. Gallbladder is unremarkable. Spleen is not enlarged. Pancreas and adrenals are unremarkable. Kidneys are symmetrically perfused. Aorta is normal caliber with mild atheromatous disease. Lack of oral contrast limits evaluation of bowel. There is no dilated small bowel loop or mural thickening. The appendix is further dilated to 13 mm on the current study and there is now mild wall hyperemia and stranding in the adjacent fat, findings concerning for a mild acute appendicitis. There is no abscess or free air. There is increased stool in the colon. Cecum appears floppy, near the midline, appendix is still directed towards the right lower quadrant. There is a small ventral hernia containing fat only, defect in the abdominal wall 9 mm, hernia measures 2.9 cm transverse by 1.3 cm AP by 2.4 cm craniocaudal. This is superior to a small fat-containing umbilical hernia. There is no evidence of incarceration. Bladder is unremarkable. There is no adnexal mass. There are degenerative changes in the spine. IMPRESSION: 1. The appendix is further dilated than on prior exam. There is now wall hyperemia and adjacent inflammatory stranding. Findings are suspicious for acute appendicitis. There is no abscess, free air, or appendicolith. Cecum appears floppy, appendix is still located right lower quadrant. Electronically signed by: Tavon Palencia MD (10/22/2017 7:12 PM) [facility]
[2017-10-22] MEDS ORDERED: IV NORMAL SALINE 50ML 50 ML ONE (19:58)
[2017-10-22] MEDS ORDERED: PIPERACILLIN/TAZOBACTAM 4.5 GM VIAL IV ONE (19:59)
[2017-10-22] MEDS ORDERED: PIP/TAZO PER PHARMACY MC PRN (20:00)
[2017-10-22] MEDS ORDERED: PIPERACILLIN/TAZOBACTAM 4.5 GM in IV NORMAL SALINE 50ML 50 ML IV ONE (20:00)
[2017-10-22 20:30] LABS: BACTERIA,URINE 0 /HPF (0-FEW); BILIRUBIN,URINE NEG (NEG); CLARITY,URINE CLEAR; COLOR,URINE YELLOW; GLUCOSE,URINE 100 mg/dL (NEG); NITRITE,URINE NEG (NEG); SQUAMOUS EPITHELIAL CELL,UR MOD /LPF; UROBILINOGEN,URINE 1 mg/dL (0.2 mg/dL)
[2017-10-22 20:43] LABS: % BANDS 4 % (0-9); % LYMPHS 4 % (24-48); % MONOS 6 % (0-10); % SEGS 86 % (35-66)
[2017-10-22 20:54] LABS: PLT ESTIMATE ADEQUATE (ADEQUATE)
== END 2017-10-22 20:18 | disposition short-term general hospital (02) ==
LOC: ER 17:03
DX: R10.31 Right lower quadrant pain (principal); R11.0 Nausea; E11.9 Type 2 diabetes mellitus without complications; E78.00 Pure hypercholesterolemia, unspecified; I10 Essential (primary) hypertension; Z98.890 Other specified postprocedural states; Z98.51 Tubal ligation status; Z88.8 Allergy status to other drugs, medicaments and biological substances
CPT/HCPCS: 36415; 74177; 80053; 81001; 83605; 83690; 85007; 85025; 87040; 93005; 96365; 96375; 99285; J2405; J2543; J3010; Q9967

== ENCOUNTER → 2019-07-09 | Outpatient (CLI) | payer MEDICARE, BC ==
[~2019-07-09] MED LIST changes: +CEPH-264 PO; +FENO145T3 PO; -FENO145T30 PO; +HYDR-2155 PO; -HYDR-2758 PO; -METF10003 PO; +METF10007 PO
--- NOTE | 2019-07-09 08:44 | RAD ---
INDICATION: Edema and heaviness of legs. COMPARISON: November 2016 TECHNIQUE: Grayscale, color and doppler ultrasound images were obtained of the bilateral lower extremity venous vasculature. RIGHT: No thrombus identified in the common femoral vein, femoral vein, popliteal vein or visualized calf veins. LEFT: No thrombus identified in the common femoral vein, femoral vein, popliteal vein or visualized calf veins. IMPRESSION: * No thrombus identified in deep venous system of bilateral lower extremities. Electronically signed by: Audi Olsen MD (07/09/2019 8:41 AM) [facility]
== END | disposition home or self-care (01) ==
LOC: US 07:41
PROVIDERS: ATTEND Family Medicine
DX: R60.0 Localized edema (principal); D68.9 Coagulation defect, unspecified
CPT/HCPCS: 93970